=== PATIENT | male | born 1995 | race Caucasian/White ===

== ENCOUNTER 2019-05-20 09:43 | Emergency (ER) | payer OTHER ==
[~2019-05-20] VITALS: Ht 172.7 cm; Wt 81.7 kg
[2019-05-20] MEDS ORDERED: NORCO 5-325 TA1 EAC1 PO (11:06)
[2019-05-20 11:35] VITALS: BP 136/84
== END 2019-05-20 11:35 | disposition home or self-care (01) ==
LOC: M.ERS 09:43
DX: S52.122A Displaced fracture of head of left radius, initial encounter for closed fracture (principal); S52.121A Displaced fracture of head of right radius, initial encounter for closed fracture; W18.39XA Other fall on same level, initial encounter; Y93.89 Activity, other specified; Y92.89 Other specified places as the place of occurrence of the external cause; Y99.8 Other external cause status